=== PATIENT | female | born 1975 | race Caucasian/White ===

== ENCOUNTER → 2017-06-20 | Outpatient (CLI) | payer OTHER ==
[~2017-06-20] MED LIST: GADOBUTROL 10 ML VIAL IVP ONE
== END ==
LOC: FIMAGING 10:28
PROVIDERS: ATTEND Orthopaedic Surgery
DX: M65.862 Other synovitis and tenosynovitis, left lower leg (principal); M25.462 Effusion, left knee; M23.42 Loose body in knee, left knee; M22.42 Chondromalacia patellae, left knee
CPT/HCPCS: A9585

== ENCOUNTER 2017-11-17 07:27 | Emergency (ER) | payer OTHER ==
--- NOTE | 2017-11-17 08:02 | EDPHY ---
H & P Time Seen by Provider: 11/17/17 07:43 HPI/ROS: Chief complaint. Headache, fever HPI. 42-year-old female presents emergency department with 4 day history of upper respiratory symptoms. She awoke 4 days ago with fever, headache, sore throat, congestion. She has continued to have the symptoms. She does now for 2 days have some sided stabbing headache which is unusual for her. She does not complaint of stiff neck. She went to urgent care yesterday where she had a negative flu test. She was given IM Toradol and prescription for hydro a. Her symptoms are somewhat better though she continues to headache. Some cough. No shortness of breath or chest discomfort. No abdominal pain though she did have some diarrhea yesterday. No nausea and vomiting. She does have decreased appetite. No rash. No recent travel or known exposure. ROS Constitutional. Fever Eyes. no problems with vision ENT. Sore throat and congestion Cardiovascular. no chest pain Respiratory. Congestion and cough without shortness of breath Abdominal. no abdominal pain, no nausea/vomiting, no diarrhea . no problems urinating MS. no calf pain/swelling, no neck/back pain, no joint pain Skin. no rash Lymph. no swollen glands Neuro. Headache Past Medical/Surgical History: Past medical history is for IUD and knee surgery Social History: , nonsmoker, no alcohol Smoking Status: Never smoked Physical Exam: General Appearance: Alert well-developed female mild distress vital signs significant for temp 37.9 degrees Eyes: Pupils equal and round no pallor or injection. ENT, tympanic membranes are normal. Pharynx slightly injected without exudate. Mucous membranes are moist Respiratory: There are no retractions, lungs are clear to auscultation. Cardiovascular: Regular rate and rhythm. Gastrointestinal: Abdomen is soft and nontender, no masses, bowel sounds normal. Neurological: Awake and alert, sensory and motor exams grossly normal. Skin: Warm and dry, no rashes. Musculoskeletal: Neck is supple nontender. Extremities symmetrical, full range of motion. Psychiatric: Patient is oriented X 3, there is no agitation. Constitutional: Initial Vital Signs Temperature (C) 37.9 C 11/17/17 07:32 Heart Rate 96 11/17/17 07:32 Respiratory Rate 16 11/17/17 07:32 Blood Pressure 132/98 H 11/17/17 07:32 O2 Sat (%) 95 03/27/18 07:32 O2 Delivery Mode Room Air Allergies/Adverse Reactions: No Known Allergies Allergy (Unverified 11/17/17 07:31) Home Medications: Medication Instructions Recorded Vicodin 5-300 mg Tablet 11/17/17 oxyCODONE/APAP 5/325 [Percocet 1 tab PO Q4-6PRN PRN #7 tab 11/17/17 5/325] Medical Decision Making Procedures: IV normal saline. Toradol, Reglan, Benadryl IV ED Course/Re-evaluation: Re-evaluation at 9:10 a.m. A.m.. Patient feeling better. She and I discussed laboratory evaluation. Re-evaluation again at 11:15 a.m.. Patient feels well. She feels well enough to go home. Really no headache. She is mentally neurologically intact. She and I discussed treatment plan including criteria for return importance of follow-up further evaluation. She expresses understanding and agreement. The patient would like something stronger for pain in the event that her headache comes back as she feels that the UnboundID has not been working. Differential Diagnosis: I believe this is viral syndrome. I considered meningitis of course with fever and headache however she has a normal neurologic exam. Her neck is supple. Her lab work is reassuring. She has significant congestion and symptoms of viral syndrome. I do not think the patient has meningitis. - Data Points Laboratory Results: Laboratory Results 11/17/17 08:32 11/17/17 08:32 11/17/17 11/17/17 08:32 08:32 WBC 4.21 10^3/uL 10^3/uL (3.80-9.50) RBC 4.69 10^6/uL 10^6/uL (4.18-5.33) Hgb 14.9 g/dL g/dL (12.6-16.3) Hct 42.4 % % (38.0-47.0) MCV 90.4 fL fL (81.5-99.8) MCH 31.8 pg pg (27.9-34.1) MCHC 35.1 g/dL g/dL (32.4-36.7) RDW 12.4 % % (11.5-15.2) Plt Count 177 10^3/uL 10^3/uL (150-400) MPV 9.7 fL fL (8.7-11.7) Neut % (Auto) 54.5 % % (39.3-74.2) Lymph % (Auto) 34.9 % % (15.0-45.0) [place] % (Auto) 8.3 % % (4.5-13.0) Eos % (Auto) 1.4 % % (0.6-7.6) Baso % (Auto) 0.7 % % (0.3-1.7) Nucleat RBC Rel Count 0.0 % % (0.0-0.2) Absolute Neuts (auto) 2.29 10^3/uL 10^3/uL (1.70-6.50) Absolute Lymphs (auto) 1.47 10^3/uL 10^3/uL (1.00-3.00) Absolute Monos (auto) 0.35 10^3/uL 10^3/uL (0.30-0.80) Absolute Eos (auto) 0.06 10^3/uL 10^3/uL (0.03-0.40) Absolute Basos (auto) 0.03 10^3/uL 10^3/uL (0.02-0.10) Absolute Nucleated RBC 0.00 10^3/uL 10^3/uL (0-0.01) Immature Gran % 0.2 % % (0.0-1.1) Immature Gran # 0.01 10^3/uL 10^3/uL (0.00-0.10) Sodium 139 mEq/L mEq/L (135-145) Potassium 3.7 mEq/L mEq/L (3.5-5.2) Chloride 100 mEq/L mEq/L (97-110) Carbon Dioxide 25 mEq/l mEq/l (22-31) Anion Gap 14 mEq/L mEq/L (8-16) BUN 11 mg/dL mg/dL (7-23) Creatinine 0.7 mg/dL mg/dL (0.6-1.0) Estimated GFR > 60 Glucose 82 mg/dL mg/dL (70-100) Calcium 9.4 mg/dL mg/dL (8.5-10.4) Medications Given: Discontinued Medications Diphenhydramine HCl (Benadryl Injection) 12.5 mg IVP EDNOW ONE Stop: 11/17/17 08:23 Last Admin: 11/17/17 08:36 Dose: 12.5 mg Sodium Chloride (Ns) 1,000 mls @ 0 mls/hr IV EDNOW ONE; Wide Open PRN Reason: Protocol Stop: 11/17/17 08:23 Last Admin: 11/17/17 08:32 Dose: 1,000 mls Ketorolac Tromethamine (Toradol) 30 mg IVP EDNOW ONE Stop: 11/17/17 08:23 Last Admin: 11/17/17 08:37 Dose: 30 mg Metoclopramide HCl (Reglan Injection) 10 mg IVP EDNOW ONE Stop: 11/17/17 08:23 Last Admin: 11/17/17 08:38 Dose: 10 mg Departure - Departure Disposition: Home, Routine, Self-Care Clinical Impression: Viral syndrome Condition: Good Instructions: Viral Syndrome (ED) Additional Instructions: Drink plenty of fluids and stay hydrated. Ibuprofen 600 mg every 6 hr as needed for headache) Roberts from coming back as well as for achiness and fever. Percocet in addition if necessary for headache. Return for worsening headache, fever. Recheck in 1-2 days if not improving Referrals: NONE *PRIMARY CARE P,. [Primary Care Provider] - As per Instructions Lidia Angulo MD [Medical Doctor] - 2-3 days, if not improved Prescriptions: oxyCODONE/APAP 5/325 [Percocet 5/325] 1 tab PO Q4-6PRN PRN #7 tab PRN Reason: Pain, Moderate
[2017-11-17] MEDS ORDERED: KETOROLAC 30 MG/1 ML SDV IVP ONE (08:22)
[2017-11-17] MEDS ORDERED: NS 1,000 ML IV ONE (08:22)
[2017-11-17] MEDS: METOCLOPRAMIDE 10 MG/2 ML VIAL IVP ONE (08:38)
[2017-11-17 08:46] LABS: PLATELET COUNT 177 10^3/uL (150-400)
[2017-11-17 11:09] VITALS: BP 126/85
== END 2017-11-17 11:36 | disposition home or self-care (01) ==
DX: B34.9 Viral infection, unspecified (principal); E86.9 Volume depletion, unspecified
CPT/HCPCS: 96374; J1200; J1885; J2765

== ENCOUNTER → 2018-09-27 | Outpatient (CLI) | payer OTHER | LOC: FIMAGING 14:00 | PROVIDERS: ATTEND Nurse Practitioner Women's Health | DX: Z12.31 Encounter for screening mammogram for malignant neoplasm of breast (principal) ==